=== PATIENT | female | born 1985 | race Two or more races ===

== ENCOUNTER 2021-03-19 15:58 | Emergency (ER) | payer MEDICAID, OTHER ==
[~2021-03-19] VITALS: Ht 165.1 cm; Wt 65.8 kg
[2021-03-19 16:00] VITALS: BP 134/71
[2021-03-19 17:49] LABS: Urine Bacteria NONE SEEN /hpf (None Seen); Urine Blood Negative /uL (Negative); Urine Specific Gravity 1.013 (1.001-1.035); Urine WBC 21 /hpf (0 - 5)
== END 2021-03-19 20:43 | disposition home or self-care (01) ==
LOC: ER 16:01
DX: O23.42 Unspecified infection of urinary tract in pregnancy, second trimester (principal); N39.0 Urinary tract infection, site not specified; O99.712 Diseases of the skin and subcutaneous tissue complicating pregnancy, second trimester; L30.9 Dermatitis, unspecified; Z3A.16 16 weeks gestation of pregnancy
CPT/HCPCS: 36415; 81001; 84702; 87070; 87088; 87186

== ENCOUNTER → 2021-04-02 | Outpatient (CLI) | payer MEDICAID ==
[2021-04-02 10:09] LABS: Amphetamine Screen, Urine NEGATIVE (NEGATIVE); Barbiturate Scree,Urine NEGATIVE (NEGATIVE); Benzodiazephine Screen, Urine NEGATIVE (NEGATIVE); Cannabinoid Screen, Urine NEGATIVE (NEGATIVE); Cocaine Screen, Urine NEGATIVE (NEGATIVE); Opiate Scree,Urine NEGATIVE (NEGATIVE); Phencyclidine Screen, Urine NEGATIVE (NEGATIVE)
[2021-04-02 11:19] LABS: Basophils # (auto) 0 10 ^3/uL (0-0.2); Basophils % (auto) 0.4 % (0.0-2.0); Eosinophils # (auto) 0.2 10 ^3/uL (0-0.8); Eosinophils % (auto) 1.7 % (0.0-7.0); Hematocrit 38.7 % (36.0-46.0); Hemoglobin 13.2 g/dL (12.2-16.2); Lymphocytes # (auto) 1.9 10 ^3/uL (0.4-5.4); Lymphocytes % (auto) 21.1 % (10.0-50.0); Mean Corpuscular Hemoglobin 29.8 pg (28.0-32.0); Mean Corpuscular Volume 87.5 fL (80.0-100.0); Monocytes # (auto) 0.5 10 ^3/uL (0-1.3); Monocytes % (auto) 5.7 % (0.0-12.0); Neutrophils # (auto) 6.5 10 ^3/uL (1.6-8.6); Neutrophils % (auto) 71.1 % (37.0-80.0); Red Blood Cells 4.42 10^6/uL (4.0-5.20); Red Cell Distribution Width 15.1 % (11.8-14.3); White Blood Cell 9.2 10^3/uL (4.4-10.8)
[2021-04-03 08:06] LABS: RPR Non Reactive (Non Reactive)
== END | disposition home or self-care (01) ==
LOC: LAB 08:47
PROVIDERS: ATTEND Obstetrics & Gynecology
DX: Z31.430 Encounter of female for testing for genetic disease carrier status for procreative management (principal); Z34.00 Encounter for supervision of normal first pregnancy, unspecified trimester; Z36.0 Encounter for antenatal screening for chromosomal anomalies
CPT/HCPCS: 36415; 80307; 83036; 84112; 84702; 85025; 86592; 86703; 86762; 86850; 86900; 86901; 87086; 87340

== ENCOUNTER 2021-07-29 08:45 | Observation (INO) | payer MEDICAID ==
[2021-07-29] MEDS ORDERED: PREN-96 PO (10:10)
== END 2021-07-29 10:50 | disposition home or self-care (01) ==
LOC: UNDOADMOB 08:45 → LDRP 08:45 → UNDODISOB 10:50
PROVIDERS: ADMIT Obstetrics & Gynecology Obstetrics; ATTEND Obstetrics & Gynecology Obstetrics
DX: O24.419 Gestational diabetes mellitus in pregnancy, unspecified control (principal); Z3A.33 33 weeks gestation of pregnancy; Z98.891 History of uterine scar from previous surgery
CPT/HCPCS: 59025; 76818; 81002; 82948; 82962; 94760; G0378

== ENCOUNTER 2021-08-07 09:58 | Observation (INO) | payer MEDICAID ==
[~2021-08-07 09:58] MED LIST: PREN-96 PO
== END 2021-08-07 12:57 | disposition home or self-care (01) ==
LOC: LDRP 09:58 → UNDOADMOB 09:58 → LDRP 10:01 → UNDODISOB 12:57
PROVIDERS: ADMIT Obstetrics & Gynecology; ATTEND Obstetrics & Gynecology
DX: O24.419 Gestational diabetes mellitus in pregnancy, unspecified control (principal); Z3A.34 34 weeks gestation of pregnancy
CPT/HCPCS: 59025; 76818; 81002; 82948; 82962; 94760; G0378

== ENCOUNTER → 2021-08-13 | Outpatient (CLI) | payer MEDICAID ==
[2021-08-13 10:57] LABS: Basophils # (auto) 0 10 ^3/uL (0-0.2); Basophils % (auto) 0.3 % (0.0-2.0); Eosinophils # (auto) 0.1 10 ^3/uL (0-0.8); Eosinophils % (auto) 0.9 % (0.0-7.0); Hematocrit 40.1 % (36.0-46.0); Hemoglobin 13.3 g/dL (12.2-16.2); Lymphocytes # (auto) 1.8 10 ^3/uL (0.4-5.4); Lymphocytes % (auto) 17.2 % (10.0-50.0); Mean Corpuscular Hemoglobin 29.7 pg (28.0-32.0); Mean Corpuscular Hgb Conc. 33.2 g/dL (32.0-36.0); Mean Corpuscular Volume 89.6 fL (80.0-100.0); Monocytes # (auto) 0.6 10 ^3/uL (0-1.3); Neutrophils # (auto) 7.8 10 ^3/uL (1.6-8.6); Neutrophils % (auto) 75.6 % (37.0-80.0); Red Blood Cells 4.47 10^6/uL (4.0-5.20); Red Cell Distribution Width 14.4 % (11.8-14.3); White Blood Cell 10.4 10^3/uL (4.4-10.8)
[2021-08-14 07:06] LABS: RPR Non Reactive (Non Reactive)
== END | disposition home or self-care (01) ==
LOC: LAB 10:36
PROVIDERS: ATTEND Obstetrics & Gynecology
DX: Z11.3 Encounter for screening for infections with a predominantly sexual mode of transmission (principal)
CPT/HCPCS: 36415; 85025; 86592

== ENCOUNTER 2021-08-14 08:01 | Observation (INO) | payer MEDICAID ==
[~2021-08-14] VITALS: Ht 165.1 cm; Wt 98.9 kg
== END 2021-08-14 11:16 | disposition home or self-care (01) ==
LOC: UNDOADMOB 09:45 → LDRP 09:45
PROVIDERS: ADMIT Obstetrics & Gynecology; ATTEND Obstetrics & Gynecology
DX: O24.419 Gestational diabetes mellitus in pregnancy, unspecified control (principal); Z3A.35 35 weeks gestation of pregnancy
CPT/HCPCS: 59025; 76818; 81002; 82948; 82962; 94760; G0378

== ENCOUNTER 2021-08-21 10:02 | Observation (INO) | payer MEDICAID ==
[2021-08-21] MEDS ORDERED: METF-370 PO (11:56)
== END 2021-08-21 12:16 | disposition home or self-care (01) ==
LOC: UNDOADMOB 10:02 → LDRP 10:02 → UNDODISOB 12:16
PROVIDERS: ADMIT Obstetrics & Gynecology; ATTEND Obstetrics & Gynecology
DX: O24.419 Gestational diabetes mellitus in pregnancy, unspecified control (principal); Z3A.36 36 weeks gestation of pregnancy
CPT/HCPCS: 59025; 76805; 76818; 81002; 82948; 82962; 94760; G0378

== ENCOUNTER 2021-08-28 07:17 | Observation (INO) | payer MEDICAID ==
[~2021-08-28 07:17] MED LIST changes: +METF-370 PO
== END 2021-08-28 12:00 | disposition home or self-care (01) ==
LOC: UNDOADMOB 10:12 → LDRP 10:12
PROVIDERS: ADMIT Obstetrics & Gynecology; ATTEND Obstetrics & Gynecology
DX: O24.419 Gestational diabetes mellitus in pregnancy, unspecified control (principal); Z3A.37 37 weeks gestation of pregnancy
CPT/HCPCS: 59025; 76818; 81002; 82948; 82962; 94760; G0378

== ENCOUNTER 2021-09-03 14:18 | Observation (INO) | payer MEDICAID ==
[2021-09-03 15:38] LABS: Urine Bacteria MANY /hpf (None Seen); Urine Blood Negative /uL (Negative); Urine Specific Gravity 1.005 (1.001-1.035); Urine WBC 11 /hpf (0 - 5)
[2021-09-03 15:40] LABS: Basophils # (auto) 0 10 ^3/uL (0-0.2); Basophils % (auto) 0.4 % (0.0-2.0); Eosinophils # (auto) 0.1 10 ^3/uL (0-0.8); Eosinophils % (auto) 0.7 % (0.0-7.0); Hematocrit 40.5 % (36.0-46.0); Hemoglobin 13.4 g/dL (12.2-16.2); Lymphocytes # (auto) 2.1 10 ^3/uL (0.4-5.4); Mean Corpuscular Hemoglobin 29.7 pg (28.0-32.0); Mean Corpuscular Hgb Conc. 33.2 g/dL (32.0-36.0); Mean Corpuscular Volume 89.3 fL (80.0-100.0); Monocytes # (auto) 0.7 10 ^3/uL (0-1.3); Monocytes % (auto) 6.6 % (0.0-12.0); Neutrophils % (auto) 73.3 % (37.0-80.0); Red Blood Cells 4.54 10^6/uL (4.0-5.20); Red Cell Distribution Width 15.1 % (11.8-14.3)
[2021-09-03 15:52] LABS: Albumin 2.8 g/dL (3.4-5.0); BUN/Creatinine Ratio 16.7; Calcium 8.2 mg/dL (8.5-10.1); Potassium 3.9 mmol/L (3.5-5.1)
[2021-09-03 15:54] LABS: Alcohol, Urine < 3.0 mg/dL (0-10); Amphetamine Screen, Urine NEGATIVE (NEGATIVE); Barbiturate Scree,Urine NEGATIVE (NEGATIVE); Benzodiazephine Screen, Urine NEGATIVE (NEGATIVE); Cannabinoid Screen, Urine NEGATIVE (NEGATIVE); Cocaine Screen, Urine NEGATIVE (NEGATIVE); Opiate Scree,Urine NEGATIVE (NEGATIVE); Phencyclidine Screen, Urine NEGATIVE (NEGATIVE)
[2021-09-03 15:55] LABS: Bilirubin, Total 0.2 mg/dL (0.2-1.0); Total Protein 7.2 g/dL (6.4-8.2)
[2021-09-03 16:05] LABS: INR 0.88 (0.9-1.15); Partial Thromboplastin Time 28.3 sec (24.6-33.4)
[2021-09-04 08:06] LABS: RPR Non Reactive (Non Reactive)
== END 2021-09-03 16:27 | disposition home or self-care (01) ==
LOC: UNDOADMOB 14:18 → LDRP 14:18
PROVIDERS: ADMIT Obstetrics & Gynecology; ATTEND Obstetrics & Gynecology
DX: O98.513 Other viral diseases complicating pregnancy, third trimester (principal); U07.1 COVID-19; O24.419 Gestational diabetes mellitus in pregnancy, unspecified control; Z3A.38 38 weeks gestation of pregnancy
CPT/HCPCS: 36415; 59025; 76818; 80053; 80307; 81001; 81002; 82962; 85025; 85610; 85730; 86592; 86850; 86900; 86901; 94760; G0378; U0003

== ENCOUNTER 2021-09-05 16:09 | Inpatient (IN) | payer MEDICAID ==
[~2021-09-05] VITALS: Ht 2.5 cm; Wt 0.5 kg
[2021-09-06] MEDS ORDERED: MORPHINE SULFATE INJ 2 MG/ml SYRG IV PRN (07:00)
[2021-09-06] MEDS ORDERED: ceFAZolin 1GM/50ML 50 ML IV ONE (07:00)
[2021-09-06] MEDS ORDERED: ceFAZolin 2 GM in D5W 5% 100 ML IV ONE (07:00)
[2021-09-06] MEDS ORDERED: LACTATED RINGER'S 1,000 ML IV ONE (07:00)
[2021-09-06] MEDS ORDERED: NITROGLYCERIN 0.4 MG SL TAB SL PRN (07:00)
[2021-09-06] MEDS: LACTATED RINGER'S 1,000 ML IV SCH ×2 (08:29→14:49)
[2021-09-06] MEDS ORDERED: HYDR-4902 PO (08:35)
[2021-09-06] MEDS ORDERED: DOCU-94 PO (08:35)
[2021-09-06] MEDS ORDERED: IBUP800T27 PO (08:35)
[2021-09-06] MEDS ORDERED: TETRACAINE 1% INJ 2 ML VIAL IJ ONE (08:40)
[2021-09-06] MEDS ORDERED: POVIDONE IODINE 10 % TOPICAL OINT 30GM TOP ONE (08:40)
[2021-09-06] MEDS ORDERED: MORPHINE SULF PF 5 MG/10 ML VIAL ONE (08:56)
[2021-09-06] MEDS ORDERED: MIDAZOLAM HCL 2MG/2ML 2ml VIAL (1mg/ml) ONE (08:56)
[2021-09-06] MEDS ORDERED: fentaNYL CITRATE 100 MCG/2 ML VL ONE (08:56)
[2021-09-06] MEDS ORDERED: LACT. RINGERS/OXYTOCIN 20UNITS 1,000 ML IV ONE (09:15)
[2021-09-06] MEDS ORDERED: ONDANSETRON HCL 4 MG/2 ML VIAL IV PRN ×2 (09:15→10:30)
[2021-09-06] MEDS ORDERED: oxyTOCIN 10 UNIT/ML 10ML VIAL ONE (09:27)
[2021-09-06] MEDS ORDERED: DexAMETHasone SOD PHOS 10MG/1ML VIAL INJ IV PRN (10:30)
[2021-09-06] MEDS ORDERED: NALOXONE HCL 0.4 MG/ML VIAL IV PRN (10:30)
[2021-09-06] MEDS ORDERED: ePHEDrine SULFATE 50 MG/ML AMP IV PRN (10:30)
[2021-09-06] MEDS ORDERED: diphenhdrAMINE HCL 50 MG/1 ML VL IV PRN (10:30)
[2021-09-06] MEDS ORDERED: NALBUPHINE HCL 10 MG/1ml INJECTION SUBCUT ONE (10:30)
[2021-09-06] MEDS ORDERED: LABETALOL HCL 5 MG/ML 4ML SYRINGE IV PRN (10:30)
[2021-09-06] MEDS ORDERED: MIDAZOLAM HCL 2MG/2ML 2ml VIAL (1mg/ml) IV PRN (10:30)
[2021-09-06] MEDS ORDERED: HYDROmorphone HCL 2 MG/ML VL/or syr IV PRN (10:30)
[2021-09-06] MEDS ORDERED: KETOROLAC TROMETH 30 MG/ML 1ML VIAL IV PRN (10:30)
[2021-09-06 11:00] VITALS: BP 155/72
[2021-09-06 11:40] VITALS: BP 175/84
[2021-09-06 11:55] VITALS: BP 155/72
[2021-09-06 12:25] VITALS: BP 149/71
[2021-09-06 12:40] VITALS: BP 119/73
[2021-09-06] MEDS ORDERED: ePHEDrine SULFATE 50 MG/ML AMP IV ONE (13:42)
[2021-09-06] MEDS: ACETAMINOPHEN IV 1000 MG/100ML (10MG/ML) IV PRN ×2 (14:28→23:13)
[2021-09-06 15:00] VITALS: BP 150/70
[2021-09-06] MEDS ORDERED: ceFAZolin 1GM/50ML 50 ML IV SCH ×3 (15:00→18:30)
[2021-09-06 21:11] LABS: Basophils # (auto) 0 10 ^3/uL (0-0.2); Basophils % (auto) 0.3 % (0.0-2.0); Eosinophils # (auto) 0 10 ^3/uL (0-0.8); Eosinophils % (auto) 0.4 % (0.0-7.0); Hematocrit 40.5 % (36.0-46.0); Hemoglobin 13.3 g/dL (12.2-16.2); Lymphocytes # (auto) 1.8 10 ^3/uL (0.4-5.4); Lymphocytes % (auto) 16.2 % (10.0-50.0); Mean Corpuscular Hemoglobin 29.4 pg (28.0-32.0); Mean Corpuscular Hgb Conc. 32.9 g/dL (32.0-36.0); Mean Corpuscular Volume 89.3 fL (80.0-100.0); Monocytes # (auto) 0.6 10 ^3/uL (0-1.3); Monocytes % (auto) 5.1 % (0.0-12.0); Neutrophils # (auto) 8.5 10 ^3/uL (1.6-8.6); Red Blood Cells 4.53 10^6/uL (4.0-5.20); Red Cell Distribution Width 14.9 % (11.8-14.3); White Blood Cell 10.8 10^3/uL (4.4-10.8)
[2021-09-07] MEDS: LACTATED RINGER'S 1,000 ML IV SCH ×4 (00:32→23:00)
[2021-09-07] MEDS ORDERED: ceFAZolin 1GM/50ML 50 ML IV SCH (04:15)
[2021-09-07] MEDS ORDERED: MORPHINE SULFATE INJ 2 MG/ml SYRG IV PRN (04:15)
[2021-09-07] MEDS: ceFAZolin 1GM/50ML 50 ML IV SCH ×2 (04:49→06:00)
[2021-09-07 07:00] VITALS: BP 120/65
[2021-09-07] MEDS ORDERED: HYDROcodone-ACET 5/325MG TAB PO PRN (08:00)
[2021-09-07] MEDS ORDERED: SODIUM CHLORIDE 0.9% 1,000 ML IV SCH (08:00)
[2021-09-07] MEDS ORDERED: BISACODYL 10 MG RECT SUPP PR PRN (08:00)
[2021-09-07 08:21] LABS: Basophils # (auto) 0 10 ^3/uL (0-0.2); Basophils % (auto) 0.2 % (0.0-2.0); Eosinophils # (auto) 0 10 ^3/uL (0-0.8); Eosinophils % (auto) 0.1 % (0.0-7.0); Hematocrit 38.8 % (36.0-46.0); Hemoglobin 12.9 g/dL (12.2-16.2); Lymphocytes # (auto) 0.6 10 ^3/uL (0.4-5.4); Lymphocytes % (auto) 7.3 % (10.0-50.0); Mean Corpuscular Hemoglobin 29.7 pg (28.0-32.0); Mean Corpuscular Hgb Conc. 33.1 g/dL (32.0-36.0); Mean Corpuscular Volume 89.5 fL (80.0-100.0); Monocytes # (auto) 0.5 10 ^3/uL (0-1.3); Monocytes % (auto) 5.5 % (0.0-12.0); Neutrophils # (auto) 7.2 10 ^3/uL (1.6-8.6); Neutrophils % (auto) 86.9 % (37.0-80.0); Red Blood Cells 4.34 10^6/uL (4.0-5.20); Red Cell Distribution Width 15.3 % (11.8-14.3); White Blood Cell 8.3 10^3/uL (4.4-10.8)
[2021-09-07] MEDS: IBUPROFEN 800 MG TAB PO PRN ×2 (09:58→21:28)
[2021-09-07] MEDS: DOCUSATE SOD 100 MG CAP PO SCH ×2 (10:54→22:08)
[2021-09-07 11:00] VITALS: BP 122/76
[2021-09-07] MEDS: SIMETHICONE 80 MG CHEWABLE TABLET PO SCH ×3 (12:00→22:08)
[2021-09-07 15:00] VITALS: BP 118/72
[2021-09-07 21:41] VITALS: BP 128/68
[2021-09-07] MEDS: HYDROcodone-ACET 5/325MG TAB PO PRN (22:11)
[2021-09-08 03:20] VITALS: BP 124/59
[2021-09-08] MEDS: HYDROcodone-ACET 5/325MG TAB PO PRN (03:54)
[2021-09-08] MEDS: SIMETHICONE 80 MG CHEWABLE TABLET PO SCH (06:00)
[2021-09-08 07:00] VITALS: BP 125/76
[2021-09-08] MEDS: LACTATED RINGER'S 1,000 ML IV SCH (07:00)
== END 2021-09-08 10:30 | disposition home or self-care (01) | DRG 539 ==
LOC: LDRP 09-06 05:05
PROVIDERS: ADMIT Obstetrics & Gynecology; ATTEND Obstetrics & Gynecology
PROC: 0UL70CZ Occlusion of Bilateral Fallopian Tubes with Extraluminal Device, Open Approach (ICD-10-PCS; 2021-09-06)
PROC: 10D00Z1 Extraction of Products of Conception, Low, Open Approach (ICD-10-PCS; principal; 2021-09-06 09:09)
DX: O98.52 Other viral diseases complicating childbirth (principal); U07.1 COVID-19; Z3A.39 39 weeks gestation of pregnancy; Z37.0 Single live birth; Z30.2 Encounter for sterilization; O34.211 Maternal care for low transverse scar from previous cesarean delivery; O24.429 Gestational diabetes mellitus in childbirth, unspecified control
CPT/HCPCS: 36415; 59025; 82962; 85025; 94760; 94762; 96360; 96361; 96365; 96366; G0378; J0131; J0690; J2250; J2590; J7060

== ENCOUNTER 2021-09-14 11:35 | Emergency (ER) | payer MEDICAID ==
[~2021-09-14] VITALS: Ht 165.1 cm; Wt 105.9 kg
[~2021-09-14 11:35] MED LIST changes: +DOCU-94 PO; +HYDR-4902 PO; +IBUP800T27 PO
[2021-09-14] MEDS ORDERED: CEPH500C PO (14:10)
[2021-09-14] MEDS ORDERED: CEPHALEXIN 250 MG CAP PO ONE (14:15)
[2021-09-14] MEDS ORDERED: AMOX-277 PO (14:42)
[2021-09-14] MEDS ORDERED: AMOXICILLIN/CLAVUL 875 MG TAB PO ONE (14:45)
[2021-09-14 14:53] VITALS: BP 116/84
== END 2021-09-14 15:02 | disposition home or self-care (01) ==
LOC: ER 11:35
DX: S31.109A Unspecified open wound of abdominal wall, unspecified quadrant without penetration into peritoneal cavity, initial encounter (principal); Z79.1 Long term (current) use of non-steroidal anti-inflammatories (NSAID); Z79.899 Other long term (current) drug therapy; X58.XXXA Exposure to other specified factors, initial encounter; Y93.89 Activity, other specified; Y92.89 Other specified places as the place of occurrence of the external cause; Y99.8 Other external cause status

== ENCOUNTER → 2021-10-18 | Outpatient (CLI) | payer MEDICAID ==
[~2021-10-18] MED LIST changes: +AMOX-277 PO
== END | disposition home or self-care (01) ==
LOC: LAB 08:19
PROVIDERS: ATTEND Obstetrics & Gynecology
DX: O99.810 Abnormal glucose complicating pregnancy (principal); Z3A.00 Weeks of gestation of pregnancy not specified
CPT/HCPCS: 36415; 82951; 83036